=== PATIENT | male | born 1990 | race Caucasian/White ===

== ENCOUNTER 2018-12-11 10:16 | Emergency (ER) | payer SELFPAY ==
[2018-12-11] MEDS: DIPHTH/TET/ACEL PERTUSS (ADULT) 0.5 ML VIAL IM* (10:58)
[2018-12-11] MEDS: LIDOCAINE 1%/EPI (MDV) 50 ML INJ INJ (11:01)
== END 2018-12-11 15:30 | disposition home or self-care (01) ==
LOC: FTE 15:30
DX: S61.412A Laceration without foreign body of left hand, initial encounter (principal); W26.0XXA Contact with knife, initial encounter; Y92.219 Unspecified school as the place of occurrence of the external cause; Z23 Encounter for immunization
CPT/HCPCS: 12002; 90471; 90715; 99283-25